=== PATIENT | female | born 2000 | race African-American/Black ===

== ENCOUNTER 2023-08-15 08:09 | Emergency (ER) | payer OTHER, SELFPAY ==
--- NOTE | 2023-08-15 08:56 | ER ---
Nurse's Notes [facility] Name: Pietro Suh Age: 23 yrs Sex: Female : 2000 Arrival Date: 08/15/2023 Time: 08:09 Bed 10 Private MD: Diagnosis: Acute serous otitis media, right ear Presentation: 08/14 08:19 Chief complaint: Patient states: a week ago I had sinus congestion and right ear pain iw and has been taking dayquil and zyrtec. Coronavirus screen: At this time, the client does not indicate any symptoms associated with coronavirus-19. Ebola Screen: Patient negative for fever greater than or equal to 101.5 degrees Fahrenheit, and additional compatible Ebola Virus Disease symptoms Patient denies exposure to infectious person. Patient denies travel to an Ebola-affected area in the 21 days before illness onset. No symptoms or risks identified at this time. Initial Sepsis Screen: Does the patient meet any 2 criteria? No. Patient's initial sepsis screen is negative. Does the patient have a suspected source of infection? No. Patient's initial sepsis screen is negative. Risk Assessment: Do you want to hurt yourself or someone else? Patient reports no desire to harm self or others. Onset of symptoms was August 09, 2023. 08:19 Method Of Arrival: Ambulatory iw 08:19 Acuity: JIGNA 4 iw Triage Assessment: 08:30 General: Behavior is calm, cooperative. iw Historical: - Allergies: 08:21 No Known Allergies; iw - Home Meds: 08:21 None [Active]; iw - PMHx: 18:18 polyps; iw - Immunization history:: Adult Immunizations unknown. - Infectious Disease History:: Denies. - Social history:: Smoking status: Patient denies any tobacco usage or history of. Screenin:31 [facility] ED Fall Risk Assessment (Adult) History of falling in the last 3 months, iw including since admission No falls in past 3 months (0 pts). Abuse screen: Denies threats or abuse. Denies injuries from another. Nutritional screening: No deficits noted. Tuberculosis screening: No symptoms or risk factors identified. Assessment: 08:30 General: Appears in no apparent distress. Pain: Complains of pain in right ear. Neuro: iw Level of Consciousness is awake, alert, obeys commands, Oriented to person, place, time, situation, Moves all extremities. Full function. Cardiovascular: Patient's skin is warm and dry. Respiratory: Airway is patent Respiratory effort is even, unlabored. EENT: Reports pain in right ear. Musculoskeletal: Capillary refill Range of motion: intact in all extremities. Vital Signs: 08:19 BP 134 / 89; Pulse 89; Resp 16; Temp 97.6; Pulse Ox 100% on R/A; Weight 92.99 kg; iw Height 5 ft. 10 in. ; Pain 6/10; 08:19 Body Mass Index 29.42 (92.99 kg, 177.8 cm) iw 08:19 Pain Scale: Adult iw ED Course: 08:12 Patient arrived in ED. rg4 08:15 Anderson Mondragon DO is Attending Physician. ms3 08:21 Triage completed. iw 08:30 Kary Suazo RN is Primary Nurse. iw 08:30 Arm band placed on. iw 08:31 Patient has correct armband on for positive identification. Provided Education on: . iw 08:55 Trent Jacobo DO is Referral Physician. ms3 09:24 No provider procedures requiring assistance completed. Patient did not have IV access iw during this emergency room visit. Administered Medications: No medications were administered Medication: 08:31 VIS not applicable for this client. iw Outcome: 08:56 Discharge ordered by MD. ms3 09:25 Discharged to home ambulatory, iw 09:25 Condition: good 09:25 Discharge instructions given to patient, Instructed on discharge instructions, follow up and referral plans. medication usage, Demonstrated understanding of instructions, follow-up care, medications, Prescriptions given X 2, 09:25 Patient left the ED. iw Signatures: Kary Suazo RN RN Federica Fernandes rg4 Anderson Mondragon DO DO ms3 Corrections: (The following items were deleted from the chart) 08:22 08:19 Pulse 89bpm; Resp 16bpm; Pulse Ox 100% RA; Temp 97.6F; 92.99 kg; Height 5 ft. 10 iw in.; BMI: 29.4; Pain 6/10, Adult; iw 18:18 08:21 PMHx: None; iw iw
--- NOTE | 2023-08-15 08:57 | EDPHYS ---
Physician Documentation [facility] Name: Pietro Suh Age: 23 yrs Sex: Female : 2000 Arrival Date: 08/15/2023 Time: 08:09 Bed 10 Private MD: ED Physician Anderson Mondragon HPI: 08/14 08:56 This 23 yrs old Black Female presents to ER via Ambulatory with complaints of Ear Pain. ms3 08:56 23-year-old female with no past medical history presents to the emergency department ms3 for right ear pain 1 week. Patient notes she has had congestion and taking Benadryl and Zyrtec with minimal relief. Patient states her pain is currently a 4/10 and last night the pain was an 8/10. She denies any alleviating or inciting factors. Historical: - Allergies: 08:21 No Known Allergies; iw - Home Meds: 08:21 None [Active]; iw - PMHx: 18:18 polyps; iw - Immunization history:: Adult Immunizations unknown. - Infectious Disease History:: Denies. - Social history:: Smoking status: Patient denies any tobacco usage or history of. ROS: 08:56 Constitutional: Negative for fever, and chills. ms3 08:56 Cardiovascular: Negative for chest pain, and palpitations. Respiratory: Negative for shortness of breath, cough, wheezing, and pleuritic chest pain, Abdomen/GI: Negative for abdominal pain, nausea, vomiting, diarrhea, and constipation, Skin: Negative for injury, rash, and discoloration, 08:56 ENT: Positive for ear pain, Exam: 08:56 Constitutional: This is a well developed, well nourished patient who is awake, alert, ms3 and in no acute distress. Head/Face: Normocephalic, atraumatic. Neck: Trachea midline, no cervical lymphadenopathy. Supple, full range of motion without nuchal rigidity, or vertebral point tenderness. No Meningismus. Chest/axilla: Normal chest wall appearance and motion. Nontender with no deformity. Cardiovascular: Regular rate and rhythm with a normal S1 and S2. No gallops, murmurs, or rubs. Normal PMI, no JVD. No pulse deficits. Respiratory: Lungs have equal breath sounds bilaterally, clear to auscultation and percussion. No rales, rhonchi or wheezes noted. No increased work of breathing, no retractions or nasal flaring. Abdomen/GI: Soft, non-tender, with normal bowel sounds. No distension or tympany. No guarding or rebound. No evidence of tenderness throughout. Skin: Warm, dry with normal turgor. Normal color with no rashes, no lesions, and no evidence of cellulitis. MS/ Extremity: Pulses equal, no cyanosis. Neurovascular intact. Full, normal range of motion. 08:56 ENT: TM's: fluid levels, on the right, Vital Signs: 08:19 BP 134 / 89; Pulse 89; Resp 16; Temp 97.6; Pulse Ox 100% on R/A; Weight 92.99 kg; iw Height 5 ft. 10 in. ; Pain 6/10; 08:19 Body Mass Index 29.42 (92.99 kg, 177.8 cm) iw 08:19 Pain Scale: Adult iw MDM: 08:55 Patient medically screened. ms3 08:56 Differential diagnosis: otitis media, acute otalgia. Data reviewed: vital signs, nurses ms3 notes, and as a result, I will discharge patient. Counseling: I had a detailed discussion with the patient and/or guardian regarding the historical points, exam findings, and any diagnostic results supporting the discharge/admit diagnosis, the need for outpatient follow up, to return to the emergency department if symptoms worsen or persist or if there are any questions or concerns that arise at home. Special discussion: I discussed with the patient/guardian in detail that at this point there is no indication for admission to the hospital. It is understood, however, that if the symptoms persist or worsen the patient needs to return immediately for re-evaluation. ED course: Discussed physical exam findings with patient. Patient to follow-up with primary care physician in 2 to 3 days. Patient understands and agrees with plan. All questions were answered. Return precautions discussed include worsening symptoms, or any other concerns. Administered Medications: No medications were administered Disposition Summary: 08/15/23 08:56 Discharge Ordered Notes: Location: Home ms3 Condition: Stable ms3 Diagnosis - Acute serous otitis media, right ear ms3 Followup: ms3 - With: Trent Jacobo, DO - When: 2 - 3 days - Reason: Recheck today's complaints Discharge Instructions: - Discharge Summary Sheet ms3 - Otitis Media, Adult ms3 Forms: - Medication Reconciliation Form ms3 - Antibiotic Education ms3 - Prescription Opioid Use ms3 - Patient Portal Instructions ms3 - Leadership Thank You Letter ms3 Prescriptions: - Flonase Allergy Relief 50 mcg/actuation Nasal spray, suspension - spray 2 spray INTRANASAL route daily administer 2 sprays into each nostril; ms3 11.1 milliliter; Refills: 0, Product Selection Permitted - Amoxicillin 875 mg Oral Tablet - take 1 tablet ORAL route every 12 hours for 10 days; 20 tablet; Refills: 0, ms3 Product Selection Permitted Signatures: Kary Suazo RN RN iw Anderson Mondragon DO DO ms3 Corrections: (The following items were deleted from the chart) 18:18 08:21 PMHx: None; yovany pedroza
[2023-08-15 09:39] VITALS: BP 134/89; TEMP 97.6; O2SAT 100
== END 2023-08-15 09:25 | disposition home or self-care (01) ==
LOC: ER 08:09
DX: H65.01 Acute serous otitis media, right ear (principal)
CPT/HCPCS: 99283